=== PATIENT | male | born 1970 | race Caucasian/White ===

== ENCOUNTER → 2016-05-12 | Outpatient (CLI) | payer BC ==
--- NOTE | 2016-05-12 16:48 | DX ---
Three-View Abdomen History: Abdominal pain. PA Chest: Lungs clear. Heart normal. No free air is seen beneath either hemidiaphragm. Abdominal Films (3): No dilated loops, air-fluid levels, or free air is detected. No abnormal calcif ications are identified. Retroperitoneal fat planes are intact. The gonads and associated lower midli ne pelvic structures are shielded. The SI joints look normal. Impression: No source for abdominal pain identified.
== END ==
LOC: EDSTATUS 11:36 → FIMAGING 15:23
PROVIDERS: ATTEND Family Medicine Sports Medicine
DX: R10.9 Unspecified abdominal pain (principal)

== ENCOUNTER → 2018-02-21 | Outpatient (CLI) | payer OTHER | LOC: MERGE 17:13 → BMCIMAGING 17:13 | PROVIDERS: ATTEND Family Medicine | DX: S63.512A Sprain of carpal joint of left wrist, initial encounter (principal) ==